=== PATIENT | male | born 1970 | race American Indian/Alaskan Native ===

== ENCOUNTER 2016-09-15 23:09 | Emergency (ER) | payer SELFPAY ==
[2016-09-15 23:19] VITALS: BP 134/88
[2016-09-16] MEDS ORDERED: MOTRIN PO ONE (02:32)
[2016-09-16] MEDS ORDERED: BOOSTRIX IM ONE (02:32)
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
== END 2016-09-16 03:37 | disposition home or self-care (01) ==
LOC: ED 23:09
DX: S01.01XA Laceration without foreign body of scalp, initial encounter (principal); Z91.013 Allergy to seafood; W45.8XXA Other foreign body or object entering through skin, initial encounter; Y93.89 Activity, other specified; Y99.0 Civilian activity done for income or pay; Y92.69 Other specified industrial and construction area as the place of occurrence of the external cause
CPT/HCPCS: 90471; 90715; 99282